=== PATIENT | female | born 1960 | race Caucasian/White ===

== ENCOUNTER 2021-08-07 12:43 | Day surgery (SDC) | payer OTHER ==
[~2021-08-07] VITALS: Ht 161.3 cm; Wt 67.1 kg
[2021-08-07] MEDS ORDERED: LEVOTHYROXINE100 MCG PO (13:02)
[2021-08-07] MEDS ORDERED: VITAMIN D21250 MCG PO (13:02)
--- NOTE | 2021-08-07 15:10 | NUR ---
08/07/21 1510 Rimma Gomez 1454 PT ARRIVED IN PACU SLEEPY WITH NO C/O'S. ABD SOFT AND PASSING FLATUS. 1510 SLEEPY. REU.
--- NOTE | 2021-08-16 12:22 | OR ---
[facility] [address] [place], [place] [address] Signed DATE OF OPERATION: 08/07/2021 SURGEON: Maico Morfin MD PREOPERATIVE DIAGNOSES: 1. Persistent unrelenting right lower abdominal pain. 2. CT scan findings possible neoplasm. POSTOPERATIVE DIAGNOSES: 1. Apparent neoplastic process of appendiceal orifice. 2. Diverticulosis sigmoid. 3. Mild proctitis. PROCEDURES: Total colonoscopy to cecum with multiple biopsies, appendiceal orifice lesion; biopsies of rectum and cecum as well. ANESTHESIA: Intravenous sedation, fentanyl 150 mcg and Versed 7 mg. INDICATION: This 61-year-old white woman is a patient of Dr. Escobar, had persistent and progressive right lower abdominal pain. A CT scan was performed under the direction of Dr. Escobar, which showed probable fecal mass and regional lymph node enlargement as well. The patient has undergone colonoscopy in 2005 also which described "ulcers of the ileum," as the patient describes it. She has family history of colon cancer in a paternal uncle. The patient has had small amount of blood per rectum with a bowel prep, but none before that. A CEA level was obtained which was only 1.6. She is admitted to undergo colonoscopy at this time to better characterize the findings of CT scan, particularly to assess for cecal neoplasm. She understands the risks of bleeding, infection, and perforation related to colonoscopy and wished to proceed. FINDINGS: The prep was good. Complete colonoscopy was undertaken to the cecum. There appeared to be a bulky neoplasm of the appendiceal orifice. This appeared to be independent of the ileocecal valve proper, though this was not entirely clear. There clearly was a neoplastic process that was identified but it did not appear to be the cecum itself. Multiple biopsies were taken of it. There were diverticula of the sigmoid and the rectum had mild inflammation for which biopsies were also obtained. Electronically Signed By: MAICO MORFIN MD 08/16/21 1222 PATIENT NAME: CAIO SANTANA OPERATIVE REPORT DATE OF : 62 REPORT #: [id number] PHYSICIAN: MAICO MORFIN MD PCP: JOHN ESCOBAR MD REPORT IS CONFIDENTIAL AND NOT TO BE RELEASED WITHOUT AUTHORIZATION [facility] [address] [place], [place] [address] Signed PROCEDURE IN DETAIL: The patient was brought to the endoscopy suite and placed in lateral decubitus position, given intravenous sedation to the point of slurred speech and nystagmus. Digital rectal examination was normal. An Olympus video colonoscope was passed in the rectum and manipulated throughout the colon noting diverticulosis of the left colon. The scope was advanced to the cecum. With various manipulations, full visualization could be undertaken. Immediately noted was a rounded lumen filling neoplastic process of what appeared to be the appendiceal orifice. This appeared to be independent of the ileocecal valve itself. Multiple biopsies were taken of this lesion in various angles. Initially, it was unclear if this represented the ileal opening or the appendiceal orifice itself, however, the followed directly to this site and on that basis I think it is most probable that it represented the appendiceal orifice. Once numerous biopsies were completed, the scope was carefully withdrawn. Remaining colon examined. There was no sign of polyps or colitis proper, however, she did have diverticula of the sigmoid and left colon. Retroflexed view confirmed mild proctitis. Biopsies were obtained. The scope was removed. The patient was taken to the recovery room in good condition. CONCLUDING DIAGNOSIS: If this represents a neoplasm of the appendiceal orifice, then a benign process is still possible. The biopsies will determine whether this represents a malignancy, whether it be a carcinoid tumor versus adenocarcinoma or less likely a benign process of some sort. I will review the CT scan more fully with Dr. Kong, radiologist, however, recall that the appendix itself was not considered enlarged or dilated. We will see the patient back soon to review her pathology report and outline plan of treatment. MD ZENAIDA Montes/MODL /[id number] cc: John Escobar MD Copies: JOHN ESCOBAR MD Electronically Signed By: MAICO MORFIN MD 08/16/21 1222 PATIENT NAME: CAIO SANTANA OPERATIVE REPORT DATE OF : 62 REPORT #: [id number] PHYSICIAN: MAICO MORFIN MD PCP: JOHN ESCOBAR MD REPORT IS CONFIDENTIAL AND NOT TO BE RELEASED WITHOUT AUTHORIZATION [facility] [address] [place] [address] Signed ~ Electronically Signed By: MAICO MORFIN MD 08/16/21 1222 PATIENT NAME: CAIO SANTANA OPERATIVE REPORT DATE OF : 62 REPORT #: [id number] PHYSICIAN: MAICO MORFIN MD PCP: JOHN ESCOBAR MD REPORT IS CONFIDENTIAL AND NOT TO BE RELEASED WITHOUT AUTHORIZATION
--- NOTE | 2021-08-16 15:18 | PATH ---
[facility] [address] [place], [place] [address] Signed SPECIMEN(S): A APPENDICEAL ORIFICE NEOPLASM BIOPSY SPECIMEN(S): B CECUM BIOPSY SPECIMEN(S): C RECTAL BIOPSY SPECIMEN SOURCE: A. APPENDICEAL ORIFICE NEOPLASM BIOPSY B. CECUM BIOPSY C. RECTAL BIOPSY CLINICAL HISTORY: Colonoscopy; c/o persistent right lower abdominal pain. 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 Postop Dx: Mild proctitis, diverticulosis, neoplasm of appendiceal orifice. MICROSCOPIC DESCRIPTION: Histologic sections of all submitted blocks are examined by light microscopy. These findings, together with the gross examination, support the pathologic diagnosis. Regarding specimen A: The following immunohistochemical stains (with appropriately staining controls) were performed and interpreted by Dr. Roberto Lopez, hematopathologist: PAX5: Positive in fcoal aggregates and in germinal centers. No diffuse marking. CD3 and CD5: Positive in T-cells, 70%. No aberrant architecture. BCL2: Negative in germinal centers. Positive in T-cells and mantle zone areas. Cyclin D: Negative. Ki-67 (germinal centers cut through): Less than 5% in lymphocytes. CD10: Positive in germinal centers. CD21: Negative to unremarkable. FINAL PATHOLOGIC DIAGNOSIS: A. Appendiceal orifice neoplasm, biopsy; - Colonic mucosa with prominent lymphoid infiltrate. - No evidence of hematologic neoplasm, per hematopathology consultation, see below. - Negative for granulomas, dysplasia or carcinoma. - See Comment. B. Cecum, biopsy: - Reactive colonic mucosa. - Negative for acute inflammation, granulomas, and microscopic colitis. C. Rectum, biopsy: PATIENT NAME: CAIO SANTANA PATHOLOGY DATE OF : 62 REPORT #: [id number] PHYSICIAN: BERNARDINO MEEHAN PCP: JOHN BOYCE MD REPORT IS CONFIDENTIAL AND NOT TO BE RELEASED WITHOUT AUTHORIZATION [facility] [address] [place], [place] [address] Signed - Colorectal mucosa with no histopathologic abnormality. COMMENT: Regarding specimen A: The history of a probably cecal neoplasm on CT scan is noted. Sections demonstrate colonic mucosa with lamina propria expansion by an lymphoid infiltrate with germinal center formation. No background crypt architectural distortion is seen. Viral cytopathic changes or infectious organisms are not seen on HE stain. The case was sent to Dr. Roberto Lopez, board-certified hematopathologist, for a hematopathology consultation and the interpretation was no evidence of a hematologic neoplasm after immunohistochemical work up (see microscopic description). The findings are nonspecific, but could be reactive secondary to infection. The biopsied tissue may not be order entry representative of the entire lesion, therefore additional clinical correlation is required. If there is clinical concern for lymphoma, B-cell rearrangement studies can be ordered. DDF:scottyg:GALLO GROSS DESCRIPTION: Three specimens are received in three containers labeled with "LL." A. The specimen, labeled "LL, 1," and designated on the requisition "appendiceal orifice neoplasm biopsy," is received in formalin and consists of multiple fragments of pink to hemorrhagic tissue (0.2-0.4 cm in greatest dimension). The specimen is submitted entirely in cassette (A1). B. The specimen, labeled "LL, 2," and designated on the requisition "cecum biopsy," is received in formalin and consists of one fragment of pink-sanders tissue (0.4 cm in greatest dimension). The specimen is submitted entirely in cassette (B1). C. The specimen, labeled "LL, 3," and designated on the requisition "rectum biopsy," is received in formalin and consists of two fragments of pink-sanders tissue (both 0.3 cm in greatest dimension). The specimen is submitted entirely in cassette (C1). AC (under the direct supervision of a pathologist) The Gross Description was prepared using a voice recognition system. The report was reviewed for accuracy; however, sound-alike word errors, addition and/or deletions may occur. If there is any question about this report, please contact Client Services. ADDITIONAL NOTES: PATIENT NAME: CAIO SANTANA PATHOLOGY DATE OF : 62 REPORT #: [id number] PHYSICIAN: BERNARDINO MEEHAN PCP: JOHN BOYCE MD REPORT IS CONFIDENTIAL AND NOT TO BE RELEASED WITHOUT AUTHORIZATION [address] [address] Signed Immunohistochemical and/or in situ hybridization studies were performed on this case with the appropriate positive controls that react as expected. This test was developed and its performance characteristics determined by [facility]. It has not been cleared or approved by the U.S. Food and Drug Administration. The FDA has determined that such clearance or approval is not necessary. This test is used for clinical purposes. It should not be regarded as investigational or for research. [facility] is certified under the Clinical Laboratory Improvement Amendments of 1988 (CLIA) as qualified to perform high complexity clinical laboratory testing. This assay has not been validated for specimens that have been decalcified. PERFORMING LABORATORY: The technical component was performed by [facility], [address] [place] [id number] (Powertrain Control Systems Engineer: Haritha Lopez MD; CLIA# [id number]). Professional interpretation was performed by [facility], [facility], [address] [place] [id number] (CLIA#: [id number]) Diagnostician: Kathy Gibbs MD Pathologist Electronically Signed 08/16/2021 Copies: ~ PATIENT NAME: CAIO SANTANA PATHOLOGY DATE OF : 62 REPORT #: [id number] PHYSICIAN: BERNARDINO PATHOLOGY PCP: JOHN BOYCE MD REPORT IS CONFIDENTIAL AND NOT TO BE RELEASED WITHOUT AUTHORIZATION
== END 2021-08-07 15:42 | disposition home or self-care (01) ==
LOC: OPS 12:43 → DS 12:43 → OPS 14:00 → DS 14:00 → OPS 15:42
PROVIDERS: ATTEND Surgery
PROC: 0DBN8ZX Excision of Sigmoid Colon, Via Natural or Artificial Opening Endoscopic, Diagnostic (ICD-10-PCS; 2021-08-07)
PROC: 0DBP8ZX Excision of Rectum, Via Natural or Artificial Opening Endoscopic, Diagnostic (ICD-10-PCS; 2021-08-07)
PROC: 0DBH8ZX Excision of Cecum, Via Natural or Artificial Opening Endoscopic, Diagnostic (ICD-10-PCS; principal; 2021-08-07 14:00)
DX: K63.9 Disease of intestine, unspecified (principal); K57.30 Diverticulosis of large intestine without perforation or abscess without bleeding; K62.89 Other specified diseases of anus and rectum; E03.9 Hypothyroidism, unspecified; Z80.0 Family history of malignant neoplasm of digestive organs
CPT/HCPCS: 99153; G0500; J2250; J3010; J7121

== ENCOUNTER 2021-09-12 07:26 | Inpatient (IN) | payer OTHER ==
[~2021-09-12] VITALS: Ht 160 cm; Wt 67.0 kg
[~2021-09-12 07:26] MED LIST: LEVOTHYROXINE100 MCG PO; VITAMIN D21250 MCG PO
--- NOTE | 2021-09-28 10:24 | NUR ---
PT ALERT, ORIENTED AND SUPPORTED BY HER FRANCIS. HE WILL REMAIN DURING SURGERY. PT IS HUNGRY AND KNOWS IT WILL BE AWHILE BEFORE SHE CAN HAVE ANY- THING OTHER THAN LIQUIDS. SEEMS PREPARED, REQUESTED PRAYER. ALSO WANTS TO HAVE FR FARAH VISIT TOMORROW AND HER BLANKET WEAVER CONTACTED IN [employer]FATHER JERONIMO IF ANYTHING GOES WRONG. SO NOTED. WILL FOLLOW
--- NOTE | 2021-09-28 10:27 | NUR ---
09/28/21 Milagros7 Elli Acuña 1023-PATIENT ARRIVED TO PACU ON 6L MASK NONAROUSABLE ORAL AIRWAY IN PLACE. RR EVEN. 3 LAP SITES TO ABDOMEN CDI. IVF INFUSING. SR.
--- NOTE | 2021-09-28 11:45 | NUR ---
THIS RN TO PACU TO BUSINESS SERVICES SALES REPRESENTATIVE PT. REPORT RECEIVED FROM MARTIN GALLOWAY. PT TRANSFERED TO MED/SURG BY THIS RN. PT REPORTS 03/27 "STOMACH ACHE" PT DENIES NEED FOR PAIN MEDICAITON AT THIS TIME. PT DENIES NAUSEA. PT TOELRATING SIPS OF WATER PO. REPROT DRY MOUTH. CHAP STICK PROVIDED. IV ASSESSED, WNL. NO S/S OF PHLEBITIS NOTED, IV FLUIDS STARTED (SEE MAR). PT HAS YET TO BE OUT OF BED. EDUCATION DONE REGARDING CALL LIGHT USE AND FALL PRECAUTIONS. CPOX IN PLACE, OXGYEN SATURATION 100% ON ROOM AIR. LUNG SOUNDS CLEAR THROUGHOUT ALL LOBES. PT CLEARING THROAT FROM TIME TO TIME, REPORTS A "SCRATCHY THROAT." ABDOMEN SOFT BUT TENDER TO TOUCH. UMBILICAL INCISION ACTICOAT DRESSING C/D/I WITH SCANT AMOUTN OF RED SHADOWING NOTED. MID LINE INCISIONS HAVE EDGES WELL APROXIMATED WITH STERI STRIPS INTACT. SCANT AMOUNT OF RED DRAINAGE NOTED. SCD'S IN PLACE. PT DENIES ADDITIONAL REQUESTS OR COMPLAINTS. PT DEMONSTRATES USE OF CALL LIGHT. BED RAILS UP. CALL LIGHT WITHIN REACH. AT BEDSIDE.
--- NOTE | 2021-09-28 12:29 | NUR ---
VITALS AND ASSESSMENT DUE. THIS RN TO ROOM. PT REPORTS SHE IS READY TO USE THE RESTROOM. PT ABLE TO SIT UP IN BED, STAND AND MARCH IN PLACE. DENIES DIZZINESS, LIGHT HEADEDNESS OR FEELINGS OF NAUSEA. PT REPORTS STANDING "HELPS THAT PAIN." BURPING NOTED. STAND BY ASSIST AMBULATION TO RESTROOM. PT [id number] CLEAR YELLOW URINE. PT PERFORMS SELF MARLA CARE. STAND BY ASSIST BACK TO BED. PT POSITIONS SELF IN BED WITH OUT ASSISTANCE. PT REPORTS PAIN REMAINS AT 5/10, ALSO STATES "IT'S MUCH BETTER NOW THAT I WALKED AND PEED." UMBILICAL DRESSING REMAINS UNCHANGED, NO NEW DRAINAGE NOTED, C/D/I. MID LINE LAP SITES X2 REMAINS UNCHANGED. SMALL AMOUNT OF RED DRAINAGE NOTED, STERI STRIPS INTACT. PT CONTINUES TO DENY NAUSEA. SCD'S IN PLACE. CPOX IN PLACE WITH OXYGEN SATUARTIONS OF 98-100% ON ROOM AIR. LEAVING FOR A PERIOD OF TIME. PT REPORTS SHE IS PLANNING TO TAKE A NAP. NO ADDITIONAL REQUESTS OR COMPLAINTS. CALL KEKE PAUL. BED RAILS UP.
--- NOTE | 2021-09-28 13:41 | NUR ---
ASSESSMENT AND VITALS DUE. THIS RN TO ROOM. PT RESTING IN BED, ALERT AND ORIENTED. PT REPORTS / MID ABDOMEN DISCOMFORT. NOTED THAT BOTH TYLENOL AND TORADOL ARE TOO EARLY TO BE GIVEN ACCORDING TO PARAMATERS BASED ON DOSES GIVEN IN OR. DR. MORFIN CALLED AND STATES TO GIVE TORADOL DOSE NOW AND IF THERE IS NO IMPROVEMENT IN PAIN TO CALL HIM BACK. MEDICAITON GIVEN (SEE EMAR). ABDOMEN REMAINS SOFT BUT TENDER TO TOUCH. STERI STRIPS TO MID LINE LAPAROSCOPIC SITES INTACT WITH NO NEW DRAINAGE NOTED, OLD RED DRAINAGE REMAINS. UMBILICAL INCISION DRESSING C/D/I. PT DENIES PASSING ANY GAS. PT DENIES NAUSEA. PT NOTED TO BURP AT TIMES WHICH SHE STATES HELPS THE PAIN. NO ADDITIONAL REQUESTS OR COMPLAINTS. PILLOW PROVIDED FOR ABDOMINAL BRACING. SCD'S IN PLACE. CPOX READING 98-100% OXYGEN SATURATIONS ON ROOM AIR. CALL LIGHT WIHTIN REACH. BED RAILS UP.
--- NOTE | 2021-09-28 14:45 | NUR ---
POST OP VITALS COMPLETED. PAIN 3/10. PT IS BELCHING. STERI STRIPS AND FOAM DRESSING TO ABDOMEN WITH SCANT AMOUNT OF SEROSANG DRAINAGE PRESENT. VITALS STABLE. DENEIS NAUSEA. STAND BY ASSSIT TO BATHROOM FOR 600ML VOID. PT BACK IN BED WITH CPOX, SCD'S ON. LR INFUSING AT 85ML/HR.
--- NOTE | 2021-09-28 14:53 | NUR ---
VITALS AND ASSESSMENT DUE. THIS RN TO ROOM. PT UP IN ROOM WITH KAZ RN, TO RESTROOM WITH STAND BY ASSIST. PT VOIDS 600ML CLEAR YELLOW URINE. PT PERFORMS SELF MARLA CARE. STAND BY ASSIST BACK TO BED. PT REPORTS 3/10 PAIN IN MID ABDOMEN STATING "IT'S MUCH BETTER AFTER YOU GAVE ME THAT MEDICINE." PT DENIES NAUSEA. ABDOMEN REMAINS SOFT BUT TENDER. NO CHANGES TO ABDOMINAL DRESSINGS. NO NEW DRAINAGE NOTED. NO CALL PLACED TO MD PTS PAIN HAS IMPROVED. EDUCATION DONE WITH PT REGARDING POST OP EXPECTATIONS, CLEAR LIQUID DIET, AND PAIN CONTOROL. PT VERBALIZES UNDERSTANDING. NO ADDITIONAL REQUESTS OR COMPLAINTS. CALL LIGHT WIHTIN REACH. WATER REFILLED. ADDITIONAL WARM BLANEKTS PROVIDED.
--- NOTE | 2021-09-28 16:11 | NUR ---
MEDICATION DUE. THIS RN TO ROOM TO CHECK ON PT. PT WATCHING TV. PT REPORTS MID ABDOMINAL PAIN AT 7/10. SCHEDULED TYELNOL GIVEN (SEE MAR). PT DENIES NAUSEA. DR. MORFIN TO FLOOR, UPDRADHA ON PT STATUS AND PAIN CONTROL. PHARMACIST TO BEDSIDE TO REVIEW MEDICAITONS WITH PT. PT ENCORUAGED TO GET UP TO CHAIR OR AMBULATE, PT DECLINES AT THIS TIME. NO ADDITIONAL REQUESTS OR COMPLAINTS. CALL LIGHT WITHIN REACH. BED RAILS UP.
[2021-09-28] MEDS ORDERED: MAGNESIUM400 M1 PO (16:21)
--- NOTE | 2021-09-28 16:22 | NUR ---
MED REC COMPLETE
--- NOTE | 2021-09-28 16:29 | NUR ---
DR. MORFIN TO ROOM TO ROUND ON PT. PTS QUESTIONS ANSWERED REGARING PROCEEDURE THAT WAS DONE. PT STATES HER QUESTIONS HAVE BEEN ANSWERED. ADDITONAL PRN PAIN MEDICAITON (PERCOCET) ORDER PLACED PER MD VERBAL ORDER, REPEAT BACK DONE TO CONFIRM MEDICATION ORDER. PT UP TO AMBULATE IN [place] X1 LAP WITH STAND BY ASSIST. PT THEN UP TO CHAIR. CPOX REMAINS IN PLACE. CALL LIGHT WITHIN REACH. NO ADDITIONAL REQUESTS OR COMPLAINTS. PT NOW REPORTS 5/10 ABDOMINAL PAIN, PT REPORTS WALKING HELPED.
--- NOTE | 2021-09-28 18:10 | NUR ---
THIS RN TO ROOM TO CHECK ON PT. PT REMAINS UP TO CHAIR. PT REPORTS SHE IS READY TO GET BACK TO BED. REPORTS 5/10 PAIN AT THIS TIME AND DENIES NEED FOR ADDITIONAL PAIN MEDICATION. STAND BY ASSIST UP TO RESTROOM. PT VOIDS 200ML CLEAR YELLOW URINE. STAND BY ASSIST BACK TO BED. PT POSITIONS SELF IN BED. PT REPORTS OCCATIONAL CRAMPING PAINS WITH DRINKING HOT BROTH. SUGAR FREE JELLO PROVIDED PER PT REQUEST. PT DECLINES SCD'S AT THIS TIME. CPOX REMAINS IN PLACE. NO ADDITIONAL REQUESTS OR COMPLAINTS. CALL LIGHT WITHIN REACH. BED RAILS UP.
--- NOTE | 2021-09-28 18:51 | NUR ---
PT ARRIVED THIS SHIFT, POST OP DAY ZERO FOR LAPAROSCOPIC PARTIAL COLECTOMY. PT UP OUT OF BED TO AMBULATE IN [place], TO CHAIR AND TO RESTOOM WITH STAND BY ASSIST. PT TOELRATING CLEAR LIQUID DIET WITH NO NAUSEA SO FAR THIS SHIFT. PT REPORTS 3-8/10 PAIN, PRN PAIN MEDICATION GIVEN, ADDITIONAL MEDICAITONS ADDED. ABDOMINAL INCISIONS, WNL. UMBILICAL INCISION C/D/I, COVERED BY ACTICOAT DRESSING. MIDLINE LAPAROSCOPIC SITES WITH EDGES WELL APROXIMATED AND STERI STRIPS INTACT, MINIMAL RED DRAINGE NOTED. CPOX REMAINS IN PLACE WITH OXYGEN SATURATIONS 98-100% ON ROOM AIR. PT VOIDING QUANTITY SUFFICIENT. PT USES CALL LIGHT AND MAKES NEEDS KNOWN.
--- NOTE | 2021-09-28 19:15 | NUR ---
SHIFT REPORT RECEIVED FROM DAYSHIFT MARTIN ABDUL AT BEDSIDE, pt AWAKE AND RESTING IN BED. RR EVEN AND UNLABORED, NO DISTRESS NOTED. NO NEEDS AT THIS TIME, CALL LIGHT IN REACH. LAP SITES X3 NOTED WITH SMALL AMOUNT RED DRAINAGE, WILL MONITOR FOR CHANGES.
--- NOTE | 2021-09-28 20:45 | NUR ---
ASSESSMENT COMPLETE, SCHEDULED MEDS GIVEN, SEE EMAR. pt A/OX4, RATES PAIN TOLERABLE 6-7/10, DENIES NEED FOR PAIN MEDICATION AT THIS TIME. WILL MONITOR. CPOX IN PLACE, VSS. NO CHANGE TO LAP SITES X3, BOWEL TONES ACTIVE. pt REPORTS BURPING, DENIES PASSING GAS. IV SITE WNL, FLUIDS INFUSING DIRECTED. BRISK BLOOD RETURN NOTED. NO FURTHER NEEDS, SCD'S IN PLACE AND CALL LIGHT IN REACH.
--- NOTE | 2021-09-28 22:56 | NUR ---
IN ROOM TO ASSIST PT TO RESTROOM SBA. PT DENIES FURTHER NEEDS AT THIS TIME. CALL LIGHT IS CLOSE.
--- NOTE | 2021-09-28 23:11 | NUR ---
IN ROOM TO ADMINISTER TYLENOL AND MOTRIN FOR 7/10 PAIN. GIVE PT A SUGAR FREE JELLO AND SHE DENIES FURTHER NEEDS. CALL LIGHT IS CLOSE.
--- NOTE | 2021-09-29 00:55 | NUR ---
NEW BAG IV FLUIDS HUNG AND INFUSING DIRECTED, IV SITE WNL. CPOX REMAINS IN PLACE, pt ON RA. SPO2 97%, HR 67. FELICE COLLADO NOW IN ROOM TO ASSIST pt TO BATHROOM. BOARD ALSO UPDATED.
--- NOTE | 2021-09-29 02:32 | NUR ---
SCHEDULED IV ABX INFUSING DIRECTED, IV SITE WNL. VSS, pt AFEBRILE. CPOX REMAINS IN PLACE. pt DID NOT RATE PAIN, BUT DESCRIBES TOLERABLE. WILL CONTINUE TO MONITOR. NO NEW SHADOWING TO LAP SITES X3, WILL CONTINE TO MONITOR. EXCESS BLANKETS REMOVED AND SCD'S TAKEN OFF PER pt REQUEST. CMS INTACT. NO ADDITIONAL NEEDS, CALL LIGHT IN REACH.
--- NOTE | 2021-09-29 06:38 | NUR ---
ANSWERED CALL LIGHT, PT UP TO BR, WILL CALL WHEN SHE IS READY TO GO BACK TO CHAIR.
--- NOTE | 2021-09-29 06:41 | NUR ---
SCHEDULED THYROID AND SCHEDULED PAIN MEDICATION GIVEN, SEE EMAR. pt RESTING IN CHAIR WITH CPOX IN PLACE. IV SITE WNL, FLUIDS INFUSING DIRECTED. NO ADDITIONAL NEEDS, CALL LIGHT IN REACH. NO NEW SHADOWING NOTED TO LAP SITES.
--- NOTE | 2021-09-29 07:21 | NUR ---
REPORT RECEIVED FROM MARTIN SAUCEDO. PT UP TO CHAIR. PT REPORTS 3/10 PAIN THAT IS WELL CONTROLED. PT DENIES NAUSEA. CLEAR LIQUIDS ORDERED FOR BREAKFAST TRAY. PT DENIES ADDIITONAL REQUESTS OR COMPLAINTS. CALL LIGHT WITHIN REACH. OXYGEN SATURATION 98% ON ROOM AIR.
--- NOTE | 2021-09-29 07:30 | NUR ---
MORNING ASSESSMENT AND MEDICATION DUE. PT REMAINS UP TO CHAIR. PT REPROTS 3/10 ABDOMINAL PAIN WITH OCCATIONAL INCREASES IN PAIN UP TO 7/10 THAT PT DESCRIBES "GAS PAIN." PT NOTED TO HAVE BOWEL MOVEMENTS X2 THIS MORNING. BOWEL TONES HYPERACTIVE WITH A LOT OF GAS MOVEMENT NOTED. PT DENIES NAUSEA. IV ASSESSED, WNL. NO S/S OF PHLEBITIS NOTED. IV ABX STARTED. LUNG SOUNDS CLEAR. OXGYEN SATURATIONS REMAIN 98-100% ON ROOM AIR. PT REQUESTS CPOX BE TAKEN OFF. CPOX DC'D AT THIS TIME. STAND BY ASSIST UP TO RESTROOM. PT VOIDS ADDITIONAL 400ML CLEAR YELLOW URINE. PT PERFORMS SELF MARLA CARE. STAND BY ASSIST BACK TO BED. PT POSITIONS SELF IN BED, NO ASSISTANCE NEEDED. ABDOMEN REMAINS SOFT BUT TENDER TO TOUCH. UMBILICAL DRESSING HAS SMALL AMOUNT OF OLD RED SHADOWING, OTHERWISE C/D/I. STERI STRIPS TO MIDLINE LAPAROSCOPIC INCISIONS INTACT WITH OLD DRY RED DRAINAGE. NO NEW DRAINAGE NOTED. EDGES WELL APROXIMATED. PT DENIES ADDITIONAL REQUESTS OR COMPLAINTS. CALL LIGHT WITHIN REACH. BED RAILS UP. ICE WATER REFILLED, WARM BLANKET PROVIDED.
--- NOTE | 2021-09-29 09:00 | NUR ---
Pt states she lives in [place] with her spouse. 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 States she is active and does not use any DME. Plans to dc to home with her spouse and return to work in 2-3 weeks. Denies financial issues or any needs. Spouse will transport her home. Pt walkin frequently in the gam[place].
--- NOTE | 2021-09-29 09:40 | NUR ---
THIS RN TO ROOM TO CHECK ON PT. PT UP TO AMBULATE IN WHITT X3 LAPS. PT STEADY ON FEET AND INDEPENDANT WITH AMBULATION. PT REPORTS 3/10 PAIN WITH ONGOING GAS PAINS AT TIMES. PT REPORTS AMBULATION IS HELPING WITH THE GAS PAINS. PT REPORST SHE HAD A HEADACHE, DRANK SOME COFFEE WHICH RESOLVED THE HEADACHE. PT DENIES NAUSEA. PT DENIES ADDITIONAL REQUESTS OR COMPLAINTS.
--- NOTE | 2021-09-29 10:55 | NUR ---
PTS ARRIVED, UPDATED ON PLAN OF CARE AND PT STATUS, HE VERBALIZES UNDERSTANDING AND STATES HIS QUESTIONS HAVE BEEN ANSWERED. PT REPORTS 2/10 ABDOMINAL PAIN STATING "IT'S JUST GAS PAIN, NOTHING REALLY AT ALL." PT DENIES ADDITIONAL REQUESTS OR COMPLAINTS. UP TO RESTROOM INDEPENDANTLY, REMAINS STEADY ON FEET. CALL LIGHT WIHTIN REACH.
--- NOTE | 2021-09-29 11:28 | NUR ---
PT REQUESTING TO EAT LUNCH. CALL PLACED TO DR. MORFIN WHO STATES IT IS OK TO ADVANCE PTS DIET AT THIS TIME. DIET ADVANCED TO REGULAR. EDUCATION DONE WITH PT REGARDING ADVANCING DIET SLOWLY. PT ORDERS SALMON AND COTTAGE CHEESE, ORDER PLACED. PT CONTINUES TO REPORT 2/10 PAIN THAT IS WELL CONTROLED AT THIS TIME. NO ADDITIONAL REQUESTS OR COMPLAINTS. CALL LIGHT WITHIN REACH. AT BEDSIDE.
--- NOTE | 2021-09-29 11:52 | NUR ---
CHECKING TO SEE IF PT WANTS BASKET MENDER TO VISIT. SHE SAID SHE DID. INFORMED FR FARAH. PT SEEMS ALERT, ORIENTED AND SUPPORTED BY HER AT . PT HOPES TO DC TODAY, WAITING FOR DR MORFIN. GAVE BLESSING AND WILL FOLLOW
--- NOTE | 2021-09-29 12:24 | NUR ---
THIS RN TO ROOM TO CHECK ON PT. PT FINISHING AN ADDITIONAL 2 LAPS IN WHITT WITH HER . PT REPORTS 0/10 PAIN "UNLESS THERE IS GAS MOVING" IN WHICH CASE SHE RATES PAIN AT 2/10. PT DENIES NEED FOR PAIN MEDICAITON AT THIS TIME. ICE WATER REFILLED PT ANTICIPATING LUNCH ARRIVAL STATING "I'M EXCITED TO EAT A LITTLE." PT DENIES ADDITIONAL REQUESTS OR COMPLAINTS. CALL LIGHT WITHIN REACH. BED RAILS UP.
--- NOTE | 2021-09-29 13:31 | NUR ---
AFTERNOON ASSESSMENT AND MEDICATION DUE. THIS RN TO ROOM. PT FINISHED WITH LUNCH, ABLE TO EAT 100%. PT DENIES NAUSEA. PT UP IN ROOM, USING RESTROOM ON HER OWN. PT REPORTS SHE WENT FOR A WALK AFTER LUNCH AND FELT "A LOT MORE GAS RUMBLING." PT BACK TO BED, STATING SHE WOULD LIKE TO REST. PT REPORTS 2/10 PAIN IN ABDOMEN THAT RADIATES UP TO BILATERAL SHOULDERS/NECK. PT REPORTS PAIN IS TOLERABLE AND COMES AND GOES WITH "GAS RUMBLINGS." SCHEDULED TYELNOL GIVEN. LUNG SOUNDS CLEAR. HEART TONES REGULAR. VITAL SIGNS STABLE. ABOMDEN REMAINS TENDER TO TOUCH, HYPERACTIVE BOWEL TONES HEARD, LESS ACTIVE THAN THIS MORNING. UMBILICAL INCISION DRESSING INTACT, SMALL AMOUNT OF OLD SHADOWING NOTED. NO NEW DRAINAGE NOTED. MIDLINE LAPAROSCOPIC SITES WELL APROXIMATED WITH STERI STRIPS INTACT. NO NEW DRAINAGE NOTED. DR. MORFIN TO FLOOR, UPDATED ON PTS STATUS. VERBAL ORDER TO SALINE LOCK IV, IV FLUSHED AND SALINE LOCKED, ALCOHOL CAP APPLIED. PT DENIES ADDITIONAL REQUESTS OR CONCERNS. ICE WATER REFILLED. CALL LIGHT WITHIN REACH. BED RAILS UP.
--- NOTE | 2021-09-29 15:16 | NUR ---
THIS RN TO ROOM TO CHECK ON PT. PT RESTING IN BED REPORTS PAIN THAT RADIATE TO NECK AND SHOULDER IS "MUCH BETTER" CONTINUES TO RATE IT AT 2/10. PT REPORTS OCCATIONAL CRAMPING PAIN IN RLQ AT 2/10. PT DENIES NEED FOR PAIN MEDICATION AT THIS TIME. PT DENIES NAUSEA. ICE WATER REFILLED. NO ADDITIONAL REQUESTS OR COMPLAINTS. CALL LIGHT WITHIN REACH. BED RAILS UP.
--- NOTE | 2021-09-29 15:52 | NUR ---
PT NOTED TO BE UP IN [place] AMBULATING INDEPENDANTLY, PT STEADY ON FEET. DENIES ADDITIONAL REQUESTS OR COMPLAINTS.
--- NOTE | 2021-09-29 15:53 | NUR ---
PT POST OP DAY 1 AFTER PARTIAL COLECTOMY. PT UP INDEPENDANTLY TO AMBULATE IN [place] MULTIPLE TIMES WELL UP TO CHAIR AND RESTROOM. PT ADVANCED TO REGULAR LOW FIBER DIET, TOLERATING WELL WITH NO NAUSEA SO FAR THIS SHIFT. PT REPORTS 2-5/10 "GAS PAIN" WELL OCCATIONAL RADIATING PAIN TO BILATERAL SHOULDERS AND NECK, CONTROLED WIHT PRN IBUPROFEN AND TYELNOL. ABDOMEN REMAINS SOFT BUT TENDER TO TOUCH. UMBILICAL INCISION DRESSING UNCHANGED WITH SMALL AMOUNT OF OLD SHADOWING NOTED, OTHERWISE C/D/I. LAPAROSCOPIC MID LINE INCISIONS X2 UNCHANGED WITH OLD RED SHADOWING NOTED, EDGES WELL APROXIMATED AND STERI STRIPS INTACT. PT HAD 2 SOFT TO LOOSE BOWEL MOVEMENTS SO FAR THIS SHIFT. PT VOIDING LARGE AMOUNTS, IV SALINE LOCKED. PT USES CALL LIGHT AND MAKES NEEDS KNOWN.
--- NOTE | 2021-09-29 17:03 | NUR ---
THIS RN TO ROOM TO CHECK ON PT. PT WATCHING TV. PT REPORTS 4/10 MID AND RIGHT SIDED ABDOMINAL PAIN. IBUPROFEN GIVEN. EDUCATION DONE WITH PT REGARDING HEALING PROCESS. PT VERBALIZES UNDERSTANDING AND STATES HER QUESTIONS HAVE BEEN ANSWERED. PT DENEIS NAUSEA. ANTICIPATING DINNER. PT DENIES ADDITIONAL REQUESTS OR COMPLAINTS. CALL LIGHT WITHIN REACH. BED RAILS UP.
--- NOTE | 2021-09-29 17:38 | NUR ---
DINNER DELIVERED TO PT. PT ENCOURAGED TO GET UP TO CHAIR FOR DINNER, DECLINES STATING SHE WOULD LIKE TO STAY IN BED FOR NOW. PT REPORTS ABDOMINAL PAIN IS IMPROVING NOW 01/25. PT DENIES ADDITIONAL REQUESTS OR OR COMPLAINTS. CALL LIGHT WITHIN REACH. BED RAILS UP.
--- NOTE | 2021-09-29 18:18 | NUR ---
PT UP TO AMBULATE IN [place] INDEPENDANTLY X2 LAPS. PT REPORTS 2/10 PAIN WITH OCCATIONAL GAS PAINS WELL. PT DENIES ADDITIONAL REQUESTS OR COMPLAINTS.
--- NOTE | 2021-09-29 18:53 | NUR ---
THIS RN TO ROOM TO CHECK ON PT. PT RESTING IN BED, FINISHED WITH DINNER. PT CONTINUES TO REPORT 2/10 ABDOMINAL DISCOMFORT, DENIES NEED FOR ADDITIONAL MEDICAITONS. NO ADDITIONAL REQUESTS OR COMPLAINTS. CALL LIGHT WITHIN REACH. BED RAILS UP.
--- NOTE | 2021-09-29 19:00 | NUR ---
SHIFT REPORT RECEIVED FROM PHUONGNJTOYIN ABDUL AT BEDSIDE. pt AWAKE AND RESTING IN BED, LAP SITES X3 WNL. SMALL AMOUNT OLD SHADOWING NOTED, WILL MONITOR FOR CHANGES. pt SALINE LOCKED AND INDEPENDENT IN ROOM. BOARD UPDATED, NO FURTHER NEEDS AT THIS TIME. CALL LIGHT IN REACH.
--- NOTE | 2021-09-29 21:52 | NUR ---
PT CALLED, WAS UP TO THE TOILET, HAD THIS COOK SPECIALTY CHECK STOOL, REPORTED TO PRIMARY RN, IN TO CHECK, I&Os DONE
--- NOTE | 2021-09-29 22:02 | NUR ---
informed by kim lino, blood noted with recent bm. this rn assessed bm, liquid sediment bm, theresa red in color. dr haddad made aware, wnl and expected per md. per md, telephone orders read back to dc scheduled heparin. no additional orders at this time. vss, pt denies sob, dizziness. no further needs, call light in reach. assessment complete. see assessment intervention for details.
--- NOTE | 2021-09-30 00:13 | NUR ---
ROUNDED ON pt, pt AWAKE AND RECENTLY RETURNED FROM BATHROOM. pt REPORTS VOID AND SIMILAR BM, NOT WITNESSED BY THIS RN. pt DENIES DIZZINESS, CALL LIGHT IN REACH. NO ADDITIONAL NEEDS VERBALIZED.
--- NOTE | 2021-09-30 02:53 | NUR ---
pt RESTING IN BED WITH EYES CLOSED, RR EVEN AND UNLABORED. NO DISTRESS NOTED. SCD'S REMAIN OFF, CALL LIGHT IN REACH.
--- NOTE | 2021-09-30 04:45 | NUR ---
PT CALLED TO LET NURSE KNOW ABT HER RECENT BM, RN IN TO CHECK, THIS MEMBERSHIP COORDINATOR IN TO GET VITALS, FRESH ICE WATER PROVIDED, NO FURTHER NEEDS AT THIS TIME
--- NOTE | 2021-09-30 04:48 | NUR ---
ASSESSMENT COMPLETE, pt AWAKE AND RESTING IN BED. DENIES PAIN AND NAUSEA. BOWEL TONES HYPERACTIVE. RECENT BM REMAINS LUIS RED IN COLOR, MORE PROMINENT COMPARED TO BM AT START OF SHIFT. SEMICONDUCTOR TESTING GROUP LEADER ASHLIE AWARE. pt DENIES DIZZINESS OR LIGHTHEADEDNESS. VSS, BP WITHIN PARAMETERS BUT ON SOFTER SIDE. WILL CONTINUE TO MONITOR. NO FURTHER NEEDS, CALL LIGHT IN REACH. NO NEW SHADOWING NOTED TO LAP SITES X3.
--- NOTE | 2021-09-30 05:33 | NUR ---
scheduled tylenol given for 2/10 pain along with scheduled thyroid medication (see emar). no additional needs, call light in reach.
--- NOTE | 2021-09-30 06:03 | NUR ---
pt AMBULATING IN HALLWAY INDEPENDENTLY, DENIES DIZZINESS/LIGHTHEADEDNESS. pt STEADY ON FEET.
--- NOTE | 2021-09-30 06:31 | NUR ---
pt HERE FOR PARTIAL COLECTOMY. A/OX4, INDEPENDENT IN ROOM AND AMBULATED IN HALLWAY. DR MORFIN CALLED AT START OF SHIFT FOR BLOODY BM'S, PER MD, FINDING EXPECTED. SCHEDULED HEPARIN DC'D. VSS, pt DENIES DIZZINESS AND LIGHTHEADEDNESS. VOIDING QS. DENIES NAUSEA, BOWEL TONES HYPERACTIVE. TOLERATING REGULAR LOW FIBER DIET. NO CHANGE TO LAP SITES. pt CALLS APPROPRIATELY.
--- NOTE | 2021-09-30 07:17 | NUR ---
REPORT RECEIVED FROM MARTIN SAUCEDO. PT RESTING IN BED. PT RECENTLY UP FOR ANOTHER LIQUID, RED TINGED BOWEL MOVEMENT. MD AWARE. PT REPORTS 2/10 ABDOMINAL DISCOMFORT, DENIES NEED FOR PAIN MEDICATION. PT DENIES NAUSEA. COFFEE PROVIDED PER PT REQUEST. NO ADDITIONAL REQUESTS OR COMPLAINTS. CALL LIGHT WITHIN REACH. BED RAILS UP.
--- NOTE | 2021-09-30 08:09 | NUR ---
MORNING ASSESSMENT AND MEDICATION DUE. PT UP TO CHAIR, INDEPENDANTLY. PT DENIES ADDITONAL BOWEL MOVEMENTS SINCE EARLIER THIS MORNING. PT CONTINUES TO REPORT 2/10 ABDOMINAL DISCOMFORT STATING "IT IS A LOT BETTER TODAY THAN IT WAS YESTERDAY, A LOT LESS GAS PAIN." PT DENIES NEED FOR PAIN MEDICATION. PT DENIES NAUSEA. IV ASSESSED, NO S/S OF PHLEBITIS, FLUSHED AND SALINE LOCKED PER PROTOCOL, ALCOHOL CAP APPLIED. ABDOMEN REMAINS SOFT, MILDLY TENDER TO TOUCH. ACTIVE BOWEL TONES HEART, LESS ACTIVE THAN YESTERDAY. UMBILICAL INCISION WNL WITH NO NEW DRAINAGE NOTED, SMALL AMOUNT OF OLD SHADOWING NOTED ON DRESSING, OTHERWISE C/D/I. MIDLINE LAPAROSCOPIC INCISIONS X2 REMAINS WNL. EDGES WELL APROXIMATED WITH STERI STRIPS INTACT, NO NEW DRAINAGE NOTED. PT ANTICIPATING BREAKFAST. ICE WATER REFILLED. NO ADDITIONAL REQUESTS OR COMPLAINTS. CALL LIGHT WITHIN REACH.
--- NOTE | 2021-09-30 09:33 | NUR ---
PATIENT UP TO SHOWER, IND. SHOWER SUPPLIES, ORAL CARE SUPPLIES GIVEN. LINENS CHANGED. VITALS AND I&O'S CHARTED. RN AWARE OF BP BEING LOWER. FRESH WATER GIVEN. CALL LIGHT IN REACH. NO FURTHER NEEDS AT THIS TIME.
--- NOTE | 2021-09-30 09:40 | NUR ---
PTS BLOOD PRESSURES NOTED TO BE TRENDING DOWNWARD. ADDITIONAL BLOOD PRESSURE TAKEN MANNUALLY AND FOUND TO BE 96/62. PT CONTINUES TO HAVE LIQUID STOOLS WITH BRIGHT RED COLOR TONES. PT DENIES LIGHTHEADEDNESS OR DIZZINESS. DR. MORFIN CALLED. CBC ORDERED, ORDERED PLACED. PT CURRENTLY UP TO SHOWER WITH ERP PROJECT MANAGER. PT REPORTS ONGOING 2/10 PAIN THAT IS WELL CONTROLED. DENIES NEED FOR PAIN MEDICATION. FALL PRECAUTIONS REVIEWED WITH PT WHO VERBALIZES UNDERSTANDING. NO ADDITIONAL REQUESTS OR COMPLAINTS. CALL LIGHT WITHIN REACH.
--- NOTE | 2021-09-30 09:56 | NUR ---
PT FINISHED WITH SHOWER, UP TO CHAIR. DENIES LIGHTHEADEDNESS BUT ENDORSES FATIGUE. LAB TO BEDSIDE FOR LAB DRAW. WARM BLANKETS AND FLOSS PROVIDED. NO ADDITIONAL REQUESTS OR COMPLAINTS. CALL LIGHT WITHIN REACH.
--- NOTE | 2021-09-30 11:27 | NUR ---
THIS RN TO ROOM TO CHECK ON PT. PT RESTING IN BED VISITING WITH . PT REPORTS ABDOMINAL PAIN AT 12/28 STATING "IT'S FINE, JUST THE SAME." PT DENIES NEED FOR PAIN MEDICAITON AT THIS TIME. 1 ADDITIONAL LIQUID RED COLOR STOOL SINCE PTS SHOWER. NO ADDITIONAL REQUESTS OR COMPLAINTS. CALL LIGHT WITHIN REACH. BED RAILS UP.
--- NOTE | 2021-09-30 12:00 | NUR ---
PTS BLOOD PRESSURE REASSESSED, NOW WNL. PT DENIES LIGHTHEADEDNESS OR DIZZINESS. PAIN REMAINS WELL CONTROLED AT 12/28. DR. MORFIN TO BEDSIDE, UPDATED ON PTS STATUS. PT VERBALIZES UNDERSTANDING AND STATES HER QUESTIONS HAVE BEEN ANSWERED. NO ADDITIONAL REQUESTS OR COMPLAINTS. CALL LIGHT WITHIN REACH. BED RAILS UP.
--- NOTE | 2021-09-30 13:47 | NUR ---
PATIENT IN BED RESTING AT THIS TIME. VITALS AND I&O'S CHARTED. FRESH WATER GIVEN. CALL LIGHT IN REACH. NO FURTHER NEEDS AT THIS TIME.
--- NOTE | 2021-09-30 14:13 | NUR ---
AFTERNOON ASSESSMENT AND MEDICATION DUE. THIS RN TO ROOM. PT RESTING IN BED WATCHING TV. PT REPORTS SHE JUST WOKE UP FROM A NAP. PT REPORTS UNCHANGED 2/10 ABOMDINAL PAIN. SCHEDULED TYLENOL GIVEN. ABDOMEN REMAINS SOFT TO TOUCH, NON DISTENDED, MILDLY TENDER WITH PLAPATION. BOWEL TONES WNL. PT REPORTS NO ADDITIONAL BOWEL MOVEMENTS. DRESSINGS REMAIN UNCHANGED WITH NO NEW DRAINAGE NOTED. PT UP TO AMBULATE IN [place] X2 LAP. BOWEL MOVEMENT NOTED AFTER AMBULATION. MILDLY RED IN COLOR, LOOSE, NO CLOTS NOTED. ICE WATER REFILLED. PT DENIES NAUSEA OR LIGHTHEADEDNESS. NO ADDITIONAL REQUESTS OR COMPLAINTS. CALL LIGHT RJHTIN REACH. BED RAILS UP.
--- NOTE | 2021-09-30 15:41 | NUR ---
THIS RN TO ROOM TO CHECK ON PT. PT UP TO RESTROOM TO VOID, VOIDS 200ML CLEAR YELLOW URINE. PT BACK TO BED INDEPENDNATLY. PT REPORTS UNCHANGED 2/10 ABDOMINAL PAIN. PT STATES SHE FEELS LIKE THE LIQUID STOOL IS "SLOWING DOWN." ICE WATER REFILLED. NO ADDITIONAL REQUESTS OR COMPLAINTS. CALL LIGHT WITHIN REACH.
--- NOTE | 2021-09-30 16:30 | NUR ---
THIS RN TO ROOM TO CHECK ON PT. PT RESTING IN BED WITH HEAD OF BED ELEVATED. PT REPORTS UNCHANGED ABOMDINAL PAIN AT 2/10. PT DENIES ANY ADDITIONAL BOWEL MOVEMENTS. NO ADDITIONAL REQUESTS OR COMPLAINTS. CALL LIGHT WITHIN REACH. BED RAILS UP.
--- NOTE | 2021-09-30 17:21 | NUR ---
DINNER DELIVERED TO PT. PT UP TO CHAIR TO EAT. PT DENIES ADDITIONAL REQUESTS OR COMPLAINTS. NO ADDITIONAL BOWEL MOVEMENTS AT THIS TIME. CALL LIGHT WITHIN REACH.
--- NOTE | 2021-09-30 17:27 | NUR ---
PT POST OP DAY 2 AFTER PARTIAL RIGHT SIDED COLECTOMY. PT UP INDEPENDANTLY IN ROOM, TO AMBULATE IN [place], AND FOR SHOWER THIS SHIFT. PT TOLERATING REGULAR LOW FIBER DIET WITH GOOD INTAKE, DENIES NASUEA THIS SHIFT. ACTICOAT DRESSING TO UMBILICAL INCISION INTACT WITH OLD SHADOWING NOTED. NO ADDITIONAL NEW DRAINAGE NOTED. MIDLINE LAPAROSCOPIC INCISIONS WELL APROXIMATED WITH STERI STRIPS INTACT, OLD DRY DRAINAGE NOTED, NO NEW DRAINAGE. ABOMDEN SOFT AND MILDY TENDER THIS SHIFT. PT REPORTS 2/10 PAIN THIS SHIFT WITH ONLY SCHEDULED TYELNOL GIVEN. PT HAD MULTIPLE LOOSE TO LIQUID RED TINGED STOOLS THIS SHIFT. AWARE. LABS MONITORED. IV SALINE LOCKED. PT VOIDING QUANTITY SUFFICIENT. PT USES CALL LIGHT AND MAKES NEEDS KNOWN.
--- NOTE | 2021-09-30 18:23 | NUR ---
THIS RN TO ROOM TO CHECK ON PT. PT UP TO AMBULATE IN [place] WITH THIS RN X2 LAPS. PT REPORST SHE OCCATIONALLY FEELS THE NEED TO HAVE A BOWEL MOVEMENT BUT HAS NOT HAD ANY ADDITONAL BOWEL MOVEMENTS SINCE EARLIER THIS SHIFT. PT REPORTS UNCHAGNED 2/10 PAIN IN ABDOMEN, EVEN WITH AMBULATION. PT DENIES NEED FOR PAIN MEDICATION. PT REPORTS SHE IS ABLE TO FEEL "MOVEMENT" IN HER STOMACH STARTING IN TRINH EPIGASTRIC AREA, AFTER EATING. PT BACK TO ROOM. NO ADDITIONAL REQUESTS OR COMPLAINTS. CALL LIGHT WITHIN REACH. BED RAILS UP.
--- NOTE | 2021-09-30 18:40 | NUR ---
PATIENT IN BED WATCHING TV. VITALS AND I&O'S CHARTED. FRESH WATER GIVEN. CALL LIGHT IN REACH. NO FURTHER NEEDS AT THIS TIME.
--- NOTE | 2021-09-30 18:46 | NUR ---
PT CALL LIGHT ON. PT REPORTS SHE HAD AN ADDITIONAL BOWEL MOVEMENT. ~200ML LIQUID BROWN STOOL NOTED IN HAT. NO BLOOD NOTED AT THIS TIME BY VISUAL INSPECTION. PT REPORTS "IT WAS A LOT LESS THAT TIME." PT DENIES NAUSEA. PAIN UNCHANGED. NO ADDITIONAL REQUSTS OR COMPLAINTS. CALL LIGHT WITHIN REACH. BED RAILS UP.
--- NOTE | 2021-09-30 19:10 | NUR ---
SHIFT REPORT RECEIVED FROM [facility] MARTIN ABDUL AT BEDSIDE. pt AWAKE AND RESTING IN BED, NO NEEDS VERBALIZED. ON RA, RR EVEN AND UNLABORED. RATE WNL. LAP SITES X3 WNL, NO NEW SHADOWING NOTED SINCE PREVIOUS SHIFT, WILL MONITOR FOR CHANGES. PER REPORT, COLORING OF BM IMPROVING AND IS NOW DARK BROWN. CALL LIGHT IN REACH. pt REPORTS TOLERABLE PAIN, DENIES NEED FOR PAIN MEDICATION AT THIS TIME.
--- NOTE | 2021-09-30 20:47 | NUR ---
ASSESSMENT COMPLETE, VSS. BP ON SOFTER SIDE BUT WNL. pt DENIES DIZZINESS AND LIGHTHEADEDNESS. INDEPENDENT IN ROOM. IV SITE WNL, FLUSHES EASILY. DENIES PAIN AND NAUSEA. LAP SITES X3 UNCHANGED FROM START OF SHIFT, BOWEL TONES HYPERACTIVE. pt DOES REPORT SOME ABD CRAMPING, WILL MONITOR. EDUCATION PROVIDED ON USE OF SCD'S, pt KINDLY DECLINES USE AT THIS TIME. NO ADDITIONAL NEEDS, FRESH WATER PROVIDED. CALL LIGHT IN REACH.
--- NOTE | 2021-09-30 22:44 | NUR ---
SCHEDULED TYLENOL GIVEN FOR 2/10 PAIN, NO FURTHER NEEDS. CALL LIGHT IN REACH.
--- NOTE | 2021-10-01 00:09 | NUR ---
pt AWAKE AND RESTING IN BED, NO NEEDS VERBALIZED. TIOLET HAT EMPTIED, CALL LIGHT IN REACH.
--- NOTE | 2021-10-01 02:30 | NUR ---
pt RESTING IN BED WITH EYES CLOSED, RR EVEN AND UNLABORED. NO DISTRESS NOTED. CALL LIGHT IN REACH.
--- NOTE | 2021-10-01 04:05 | NUR ---
pt CONTINUES TO REST IN BED WITH EYES CLOSED. RR EVEN AND UNLABORED. NO DSITRESS NOTED, CALL LIGHT IN REACH.
--- NOTE | 2021-10-01 05:24 | NUR ---
ASSESSMENT COMPLETE, NO ACUTE CHANGES. VSS, pt DENIES PAIN AND NAUSEA. NO CHANGE TO LAP SITES X3. DARK BROWN GRAINY BM NOTED. CALL LIGHT IN REACH.
--- NOTE | 2021-10-01 05:56 | NUR ---
scheduled tylenol and thyroid medication given, see emar. no additional needs verbalized. call light in reach.
--- NOTE | 2021-10-01 06:11 | NUR ---
pt AMBULATING IN HALLWAY INDEPENDENTLY. NO NEEDS VERBALIZED.
--- NOTE | 2021-10-01 07:24 | NUR ---
RECEIVED REPORT FROM DAY SHIFT RN. PATIENT IS UP TO RECLINER. PATIENT DENIES ANY PAIN. PATIENT DENIES ANY NEEDS. CALL LIGHT IN REACH.
--- NOTE | 2021-10-01 07:55 | NUR ---
PT AWAKE IN ROOM AND UP IN CHAIR. WHITE BOARD UDPATED. FRESH ICE WATER GIVEN. NO FURTHER NEEDS AT THIS TIME.
--- NOTE | 2021-10-01 09:11 | NUR ---
PATIENT ASSESMENT COMPLETED. PATIENT IS UP TO RECLINER. VITALS TAKEN AND RECORDED. PATIENT CONSUMED 100% OF BREAKFAST. INTAKE AND OUTPUT RECORDED. ACTIVE BOWEL TONES. PATIENT HAD X1 LOOSE BM NO BLOOD TINGE NOTED. PATIENT DENIES ANY PAIN. PATIENT DENIES ANY NEEDS. LAP SITES NOTED AND ARE C/D/I, NO DRAINAGE NOTED.
--- NOTE | 2021-10-01 10:11 | NUR ---
PATIENT IS RESTING IN RECLINER WATCHING TV. ICE WATER REFILLED. PATIENT DENIES ANY NEEDS. CALL LIGHT IN REACH.
[2021-10-01] MEDS ORDERED: IBUPROFEN600 MG PO (12:45)
[2021-10-01] MEDS ORDERED: ACETAMINOPHEN500 MG PO (12:46)
--- NOTE | 2021-10-01 12:59 | NUR ---
PATIENT UP AMBULATING IN HALLWAY WITH . NO NEEDS NOTED. CALL LIGHT IN REACH. SHELBIE IN TO SEE PATIENT.
--- NOTE | 2021-10-01 13:17 | NUR ---
VITALS TAKEN AND RECORDED. INTAKE AND OUTPUT RECORDED. EDUCATED PATIENT ON DISCHARGE INSTRUCTIONS AND ALL QUESTIONS ANSWERED. PATIENTS PRESENT IN THE ROOM. PATIENTS IV DC'D, NO SIGNS OR SYMTPOMS OF INFILTRATION NOTED.
--- NOTE | 2021-10-01 13:24 | NUR ---
PATIENT OFF THE FLOOR AND DISCHARGED WITH . ALL BELONGINGS ARE WITH PATIENTS.
--- NOTE | 2021-10-01 21:51 | NUR ---
PHONE CALL RETURNED, INDIVIDUAL CALLED ASKING TO SPEAK TO THIS RN. INDIVIDUAL WAS A pt HERE AND DISCHARGED TODAY BY DAYSHIFT. INDIVIDUAL REPORTS AFTER BEING DISCHARGED TODAY SHE WAS HOME AND HAD SHOWERED AND MADE DINNER. PER INDIVIDUAL AT APPROX 1745, SHE HAS BLACKED OUT, CONFIRMED. BP TAKEN AND WAS 48/31 AFTER BLACKOUT. UPON AWAKENING, DISCHARGED pt REPORTS HAVING SLURRED SPEECH AND DROOLING. BP IMPROVED WITH HOURLY CHECKS PER INDIVIDUAL, NOW 101/67. INDIVIDUAL STATES, "I FEEL BETTER NOW". MEDICAL ADVICE NOT GIVEN OVER PHONE OTHER THAN ADVISED DISCHARGED pt TO SEEK EMERGENCY MEDICAL ATTENTION VIA EMERGENCY ROOM AND INSTRUCTED NOT TO DRIVE SELF TO HOSPITAL.
--- NOTE | 2021-10-02 14:29 | PATH ---
[facility] [address], [place] [address] Signed SPECIMEN(S): A CECAL RESECTION SPECIMEN SOURCE: A. 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 FINAL PATHOLOGIC DIAGNOSIS: Cecum and appendix, right hemicolectomy: - Appendix with sessile serrated adenoma, follicular lymphoid hyperplasia, some focal abscess formation, rare acellular mucin, and serosal adhesions. - No histologic evidence of malignancy identified. - Margins free of dysplastic changes. - Background colonic and small intestinal mucosa with some reactive changes and focal serosal adhesions. - Fifteen benign lymph nodes. COMMENT: This case was reviewed by Dr. Haritha Lopez, a gastrointestinal fellowship trained pathologist, who agreed with this diagnosis. DDF:AMB:cml:C2NR MICROSCOPIC EXAMINATION: Histologic sections of all submitted blocks are examined by light microscopy. These findings, together with the gross examination, support the pathologic diagnosis. GROSS DESCRIPTION: The specimen, labeled "LL," and designated on the requisition "cecal resection, neoplasm of the appendix," is received in formalin and consists of a previously opened, 9.2 cm long, up to 4.2 cm in diameter colonic segment with attached terminal ileum, appendix, and adipose tissue up to 5.0 cm wide. The distal colonic margin is closed by a 5.2 cm long staple line which is removed and the underlying tissue is inked blue. The proximal terminal ileum margin is closed by a 3.6 cm long staple line which is removed and the underlying tissue is inked orange. The appendix is diffusely covered in sanders to dark brown adhesions. One area of the appendiceal adhesions has a ragged, somewhat linear appearance consistent with a possible resection margin. This area is inked black. The PATIENT NAME: CAIO SANTANA PATHOLOGY DATE OF : 62 REPORT #: [id number] PHYSICIAN: BERNARDINO PATHOLOGY PCP: JOHN BOYCE MD REPORT IS CONFIDENTIAL AND NOT TO BE RELEASED WITHOUT AUTHORIZATION [facility] [address], [place] [address] Signed colonic mucosa is sanders with usual folds and without a discrete mass/lesion. The appendiceal orifice is markedly dilated up to 1.0 cm. The appendix is adherent to the colonic serosa. The appendiceal serosa is inked yellow. The appendix is without a grossly identifiable perforation. The appendiceal tip contains a scant amount of clear mucoid material that is without an associated mass/lesion. The appendix is lined by sanders to pink mucosa that is without a discrete mass/lesion. Fecalith are absent. The appendix itself is 0.6 cm from the black inked margin, 2.1 cm from the proximal terminal ileum margin, 4.7 cm from the radial/vascular root margin which is inked red, and 10.4 cm from the distal colonic margin. The terminal ileum is 4.0 cm long, 2.1 cm in diameter, and the terminal mucosa is sanders, glistening with multiple focal areas of adhesions. The terminal ileum mucosa is sanders to pink with usual folds and without a discrete mass/lesion. The attached adipose tissue is removed, sectioned, and palpated for lymph nodes. 16 pink-sanders lymph node candidates from 0.3 up to 1.2 cm in greatest dimension are found. Manager Area sections are submitted as follows: A1-A15 appendix entirely, including appendix to cecal pouch and submitted from distal to proximal A16 remainder of black inked possible margin, cut surface down A17 vascular root/radial margin, cut surface down A18-A19 distal colonic margin, cut surface down A20 proximal terminal ileum margin, cut surface down A21 colon A22 ileocecal valve A23 terminal ileum A24 5 lymph node candidates in toto A25 5 lymph node candidates in toto A26 3 lymph node candidates in toto A27 one bivalved lymph node candidate A28 one bivalved lymph node candidate A29-A30 one trisected lymph node candidate AI (under the direct supervision of a pathologist) The Gross Description was prepared using a voice recognition system. The report was reviewed for accuracy; however, sound-alike word errors, addition and/or deletions may occur. If there is any question about this report, please contact Client Services. PATIENT NAME: CAIO SANTANA PATHOLOGY DATE OF : 62 REPORT #: [id number] PHYSICIAN: BERNARDINO MEEHAN PCP: JOHN BOYCE MD REPORT IS CONFIDENTIAL AND NOT TO BE RELEASED WITHOUT AUTHORIZATION [address] [address] Signed PERFORMING LABORATORY: The technical component was performed by [facility], [address] [place] [id number] (Sys Dir: Haritha Lopez MD; CLIA# [id number]). Professional interpretation was performed by [facility], [facility], [address] [address] (CLIA# [id number]). Diagnostician: Anival Cavazos DO Pathologist Electronically Signed 10/02/2021 Copies: ~ PATIENT NAME: CAIO SANTANA PATHOLOGY DATE OF : 62 REPORT #: [id number] PHYSICIAN: BERNARDINO MEEHAN PCP: JOHN BOYCE MD REPORT IS CONFIDENTIAL AND NOT TO BE RELEASED WITHOUT AUTHORIZATION
--- NOTE | 2021-10-03 13:57 | OR ---
[facility] [address], [place] [address] Signed DATE OF OPERATION: 09/28/2021 SURGEON: Maico Morfin MD PREOPERATIVE DIAGNOSIS: Appendiceal mass (symptomatic). POSTOPERATIVE DIAGNOSIS: Appendiceal mass with local inflammatory change adherence to pelvic sidewall. PROCEDURE: Laparoscopic-assisted right partial colectomy with end-to-side ileocolostomy. ANESTHESIA: General endotracheal, Sonia James, ARMATURE REWINDER and local 30 mL of 0.25% Marcaine with epinephrine. INDICATION: This 61-year-old white woman is a patient of Dr. John Escobar and presented to the emergency room on July 26, 2021 with right lower abdominal pain. 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 She underwent colonoscopy by az on July 28, 2021, showing no sign of cecal carcinoma, but did show a fullness or mass-like abnormality in the lumen of the appendix. Notably, the CT scan did show some regional adenopathy. She had no sign of ascites or hepatic neoplasm. Biopsies were taken of the appendiceal orifice neoplastic process, which showed no evidence of lymphoma, adenocarcinoma, or other finding. The patient preferred delayed treatment due to concerns on her part regarding work issues and now presents for surgical intervention as recommneded. She will undergo a plan for laparoscopy with and laparoscopic right partial colectomy depending on the operative findings. The patient and her understand the risks of bleeding, infection, need for full open incision, need for additional treatment should malignancy be found, and of course, other unforeseen complications. Understanding this, they wished to proceed. FINDINGS: There is no evidence of carcinomatosis, ascites, or hepatic abnormalities. There was inflammatory adherence of the area of the cecum and what proved to be the appendix itself to the pelvic sidewall. Wide resection was undertaken of this including the peritoneal layer, so as to maintain a clinically negative margin. The lesion was not Electronically Signed By: MAICO MORFIN MD 10/03/21 1357 PATIENT NAME: CAIO SANTANA OPERATIVE REPORT DATE OF : 62 REPORT #: [id number] PHYSICIAN: MAICO MORFIN MD PCP: JOHN ESCOBAR MD REPORT IS CONFIDENTIAL AND NOT TO BE RELEASED WITHOUT AUTHORIZATION [facility] [address], [place] [address] Signed peeled off the sidewall on the possibility of malignancy. Once mobilized, the appendix appeared to be dilated, chronically inflamed and gummy in appearance. There was no evidence of perforation. Complete mobilization of the right colon and the proximal terminal ileum allowed for withdrawal of the cecal process out of the abdomen through an extension of the infraumbilical laparoscopic incision for clinical assessment. The lesion appeared most likely to be inflammatory rather than neoplastic. There were some enlarged regional lymph nodes which were resected in the specimen, which included small portion of the terminal ileum and about half of the right colon in aggregate. An end-to-side ileocolostomy was performed for the anastomosis in a two layer technique with interrupted 3-0 silk suture and 3-0 Vicryl suture. Mesenteric defect was closed. Inspection at conclusion from a laparoscopic perspective showed that the anastomosis lay essentially in the right upper abdomen. There were no known complications. DESCRIPTION OF PROCEDURE: The patient was brought to the operating room, and given a general endotracheal anesthetic. Preoperative bowel prep had been undertaken including intravenous antibiotics including cefoxitin. A Thomas catheter was placed. The abdomen was clipped and prepared with a chlorhexidine solution and draped sterilely. An infraumbilical incision was made and using an open Mallory cannula technique, the abdomen was entered and pneumoperitoneum achieved after placement of a Mallory cannula to a 14 mmHg. Intra-abdominal inspection showed no sign of ascites or carcinomatosis. Noted in the area of the cecum were adherent inflammatory changes of the cecum and pericecal tissue to the right anterolateral pelvic sidewall. The 12 mm epigastric port was placed and a camera replaced to that site. Gentle manipulation with laparoscopic graspers showed adherence, which most likely was inflammatory, but could not be ruled out that it was malignancy. A 5 mm suprapubic port was placed and with two hand manipulation, the peritoneum corresponding to the site was incised with electrocautery and using blunt dissection, from the pelvic sidewall with clinically negative margin. The white line of Toldt in the right colon was similarly dissected free and the right colon mobilized to the midline. The ureter was noted after incising the peritoneal attachment of the terminal ileum and was well out of harm's way. Blunt dissection was used to progressively mobilize the right mesocolon including mobilization of the hepatic flexure. This dissection was taken with minimal blood loss and no particular complications. Examination of the mesentery corresponding to the cecal area did show possibly somewhat enlarged lymph nodes though not markedly so. Under the circumstances of the situation, it seemed best to withdraw the appendiceal and cecal process to be examined more fully outside of the abdomen. The infraumbilical Mallory cannula was removed and the incision extended inferiorly for a few cm enough to Electronically Signed By: MAICO MORFIN MD 10/03/21 1357 PATIENT NAME: CAIO SANTANA OPERATIVE REPORT DATE OF : 62 REPORT #: [id number] PHYSICIAN: MAICO MORFIN MD PCP: JOHN ESCOBAR MD REPORT IS CONFIDENTIAL AND NOT TO BE RELEASED WITHOUT AUTHORIZATION [facility] [address], [place] [address] about three fingers into the wound. Using a Floyd clamp and careful manipulation, the terminal ileum and the cecum could be mobilized out of the abdomen and examine more fully. The process seemed to be dominantly the appendix, which appeared to be chronically inflamed and firm and rubbery. It was uncertain if this represented chronic appendicitis or in fact appendiceal neoplasm. Palpation and inspection of the mesentery at the ileocecal junction did show a few small and enlarged lymph nodes, but they appeared inflammatory rather than neoplastic. As good mobility of the right colon had been accomplished, a partial colectomy was deemed most advisable. Mindful that future intervention might be required if extensive malignancy is later identified. The mesentery corresponding to the terminal ileum and cecum and mid right colon was incised a bit more and application of hemostats to the vascular pedicle was undertaken. The mesentery was divided and the vascular pedicle secured with 0 silk ties. A JAVIER stapling device was used to transect the terminal ileum a few cm from its entry to the cecum. Similarly, the mid ascending colon was transected with a JAVIER stapling device. Staple margin of the colon was oversewn with interrupted 3-0 silk. Completely viable as did the transected ileum. An end-to-side ileocolostomy was then undertaken in a two layer technique with interrupted 3-0 silk suture and interrupted 3-0 Vicryl suture. Anastomosis was completely viable and watertight. The mesenteric defect was reapproximated with interrupted 3-0 silk suture. Photographs were taken throughout. The ileum and right colon were returned to the peritoneal cavity. The infraumbilical fascial incision was reapproximated with running bidirectional 0 PDS suture and prior to securing it, the Mallory cannula replaced. Pneumoperitoneum was once again reintroduced and irrigation undertaken. The anastomosis now was located in the right upper quadrant essentially. Excess irrigation fluid was suctioned free. There was no sign of bleeding or other problems. The trocars were removed under direct visualization showing no sign of bleeding. Removal of the suprapubic and epigastric port was undertaken showing no sign of bleeding. The infraumbilical fascial incision was completed in its closure by securing the 0 PDS suture. 30 mL of 0.25% Marcaine with epinephrine was injected locally. Irrigation was undertaken. Hemostasis assured with electrocautery. The skin was then closed with interrupted 3-0 Vicryl. Steri-Strips were applied to each wound and a small Acticoat dressing applied at the umbilicus. The patient was ultimately extubated and transported to recovery room in good condition Electronically Signed By: MAICO MORFIN MD 10/03/21 1357 PATIENT NAME: CAIO SANTANA OPERATIVE REPORT DATE OF : 62 REPORT #: [id number] PHYSICIAN: MAICO MORFIN MD PCP: JOHN ESCOBAR MD REPORT IS CONFIDENTIAL AND NOT TO BE RELEASED WITHOUT AUTHORIZATION [address] [address] Signed having suffered no complications. Sponge, needle, and instrument counts were reported as correct x3. Maico Morfin MD JM/MODL /[id number] cc: John Escobar MD Copies: JOHN ESCOBAR MD ~ Electronically Signed By: MAICO MORFIN MD 10/03/21 1357 PATIENT NAME: CAIO SANTANA OPERATIVE REPORT DATE OF : 62 REPORT #: [id number] PHYSICIAN: MAICO MORFIN MD PCP: JOHN ESCOBAR MD REPORT IS CONFIDENTIAL AND NOT TO BE RELEASED WITHOUT AUTHORIZATION
--- NOTE | 2021-10-03 13:57 | DS ---
[facility] [address], [place] [address] Signed ADMISSION DATE: 09/28/2021 DISCHARGE DATE: 10/01/2021 REASON FOR ADMISSION: This 61-year-old white woman is a patient Dr. John Escobar, who presented to the emergency room on July 26, 2021, with right lower abdominal pain. 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 Subsequent colonoscopy by me on July 28, 2021, showed no sign of cecal carcinoma, but did show fullness or masslike abnormality in the lumen of the appendix. Multiple biopsies were taken of the appendiceal lumen. The pathology showed no evidence of carcinoid tumor, adenocarcinoma, or other abnormality particularly. A chromogranin A study was considered normal. The patient was recommended to have partial colectomy on the basis of those findings in conjunction with the concurrent findings of some regional adenopathy in the region of the cecum. The patient deferred treatment due to work considerations and presents at this time for laparoscopy with probable laparoscopic partial colectomy depending on operative findings. An open procedure may additionally be required. PERTINENT PHYSICAL EXAMINATION: GENERAL: Showed a pleasant, well-developed, well-nourished, white woman without sign of systemic toxicity. NECK: Trachea is midline. CHEST: Clear. HEART: Regular without murmur. ABDOMEN: Soft and nondistended. There is no ascites. There is no palpable mass. EXTREMITIES: Show no clubbing, cyanosis, or edema. HOSPITAL COURSE: On September 28, 2021, she underwent laparoscopic assisted right partial colectomy with extra-abdominal end-to-side ileocolostomy. She tolerated the procedure well. Tap blocks were not placed as she did not have extensive incision. Local anesthetic was given of course. She was begun on a clear liquid diet at the night of operation, which she tolerated well. By the next day, was having some liquid bowel movement. There were episodes of a small amount of blood associated with the fluid. She was advanced in her diet to a regular diet on the first postoperative day, which she tolerated well also. She persisted in some episodic small amount of blood per rectum mixed with fluid. Lab study was obtained showing hematocrit that was 32.6, her immediate postoperative hematocrit 33.0, therefore a little if any change. She was kept in the hospital until postoperative day #2, though technically might have Electronically Signed By: MAICO MORFIN MD 10/03/21 1357 PATIENT NAME: CAIO SANTANA DISCHARGE SUMMARY DATE OF : 62 REPORT #: [id number] PHYSICIAN: MAICO MORFIN MD PCP: JOHN ESCOBAR MD REPORT IS CONFIDENTIAL AND NOT TO BE RELEASED WITHOUT AUTHORIZATION [facility] [address], [place] [address] Signed been discharged sooner, where it not for the small amount of bleeding she had. By the day of discharge, she is ambulating well, having no blood per rectum, tolerating solid regular diet and pain control well controlled by non-opiate medication. The bowel movements have firmed up some and are no longer with any sign of bleeding. She will be discharged to home anticipating return to work on October 26. She should lift no more than 20 pounds for two weeks following discharge. 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 It is noted that her final pathology is pending and the etiology of the rubber mass like effect of the appendix remains uncertain as do resected lymph nodes in conjunction with the specimen. DISCHARGE MEDICATIONS: Will include: 1. Ibuprofen 600 mg p.o. q.6 hours as needed for pain, #30, refill one. 2. Tylenol 500 mg tablets two tablets p.o. q.6 hours as needed for pain, #30, refill one. She will resume her usual medication of Synthroid 100 mcg p.o. daily, vitamin D2 1250 mcg (50,000 units) p.o. weekly, and magnesium oxide 400 mg p.o. daily. FOLLOWUP PLAN: She will return to see me in approximately 4 weeks. If she has problems sooner, she will let me know. She will return to the ongoing care of Dr. Escobar, her primary provider as well. DISCHARGE DIAGNOSES: 1. 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 2. Hypothyroidism. 3. Episodic hypomagnesemia. MD ZENAIDA Montes/MODL /[id number] Electronically Signed By: MAICO MORFIN MD 10/03/21 1357 PATIENT NAME: CAIO SANTANA DISCHARGE SUMMARY DATE OF : 62 REPORT #: [id number] PHYSICIAN: MAICO MORFIN MD PCP: JOHN ESCOBAR MD REPORT IS CONFIDENTIAL AND NOT TO BE RELEASED WITHOUT AUTHORIZATION [facility] [address] [place], [place] [address] Signed cc: John Escobar MD Copies: JOHN ESCOBAR MD ~ Electronically Signed By: MAICO MORFIN MD 10/03/21 1357 PATIENT NAME: CAIO SANTANA DISCHARGE SUMMARY DATE OF : 62 REPORT #: [id number] PHYSICIAN: MAICO MORFIN MD PCP: JOHN ESCOBAR MD REPORT IS CONFIDENTIAL AND NOT TO BE RELEASED WITHOUT AUTHORIZATION
== END 2021-10-01 13:25 | disposition home or self-care (01) | DRG 331 ==
LOC: MS 09-28 05:40 → DSVR 09-28 05:40 → DS 09-28 06:45 → MS 09-28 06:45 → EDSTATUS 09-28 06:45 → MS 09-28 11:49
PROVIDERS: ADMIT Surgery; ATTEND Surgery
PROC: 0DTF0ZZ Resection of Right Large Intestine, Open Approach (ICD-10-PCS; principal; 2021-09-28 06:45)
DX: K38.8 Other specified diseases of appendix (principal); E83.42 Hypomagnesemia; E03.9 Hypothyroidism, unspecified; Z79.899 Other long term (current) drug therapy
CPT/HCPCS: 00790; 85025; A9270; J0131; J0330; J0690; J0694; J1100; J1644; J1790; J1885; J2001; J2250; J2405; J2704; J3475; J7121